=== PATIENT | female | born 1985 | race Caucasian/White ===

== ENCOUNTER 2018-07-09 19:46 | Inpatient (IN) ==
[2018-07-09] MEDS ORDERED: Sodium Chlor 0.9% Inj 500 ML IV.SIG PRN (21:00)
[2018-07-09] MEDS ORDERED: Citric Acid/Sodium Citrate Liq 30 ML UDC PO SCH (21:00)
[2018-07-09] MEDS ORDERED: Sod Chloride 0.9% Inj 1,000 ML IV.CONT PRN (21:00)
[2018-07-09] MEDS ORDERED: Oxytocin 30 Units/500ml Premix 30 UNITS/500 ML BAG IV.SIG ONE (21:00)
[2018-07-09] MEDS ORDERED: fentaNYL Citrate Inj 100 MCG/2 ML Ampul IV.PUSH PRN ×2 (21:00)
[2018-07-09 21:34] LABS: Bilirubin,Urine Negative (Negative); Clarity,Urine Clear (Clear); Color,Urine Colorless (Yellw/Straw); Glucose,Urine (UA) Negative (Negative); Leukocyte Esterase,Urine Negative (Negative); Mucus,Urine Few /lpf (Occasional); Nitrite,Urine Negative (Negative); Specific Gravity,Urine 1.002 (1.002-1.035); Squamous Epithelial Cell,Urine 1 /hpf (0-5)
[2018-07-09 21:36] LABS: Baso # (Auto) 0.1 th/mm3 (0.0-0.2); Baso % (Auto) 0.6 % (0.0-2.0); Eos # (Auto) 0.2 th/mm3 (0.0-0.4); Eos % (Auto) 1.5 % (0.0-4.0); Hemoglobin 9.6 gm/dL (11.6-15.3); Lymph # (Auto) 1.7 th/mm3 (1.0-4.8); Lymph % (Auto) 14.1 % (9.0-44.0); Mean Corpuscular HGB Conc 34.5 % (32.0-36.0); Mean Corpuscular Hemoglobin 31.8 pg (27.0-34.0); Mean Corpuscular Volume 92.2 fL (80.0-100.0); Mono # (Auto) 0.7 th/mm3 (0.0-0.9); Mono % (Auto) 5.9 % (0.0-8.0); Neut # (Auto) 9.3 th/mm3 (1.8-7.7); Neut % (Auto) 77.9 % (16.0-70.0); Platelet Count 312 th/mm3 (150-450); Red Blood Count 3.03 mil/mm3 (4.00-5.30); Red Cell Distribution Width 12.5 % (11.6-17.2)
[2018-07-09 21:38] LABS: Amphetamine Urine With Conf Neg (Neg); Benzodiazepine Urine With Conf Neg (Neg)
[2018-07-09 22:04] LABS: Albumin 2.5 g/dL (3.4-5.0); Anion Gap 12 meq/L (5-15); Aspartate Aminotransferase 16 U/L (15-37); Blood Urea Nitrogen 8 mg/dL (7-18); Calcium 8.5 mg/dL (8.5-10.1); Carbon Dioxide 21.5 meq/L (21.0-32.0); Chloride 107 meq/L (98-107); Glomerular Filtration Rate 77 mL/min (>89); Glucose,Random 100 mg/dL (74-106); Potassium 3.3 meq/L (3.5-5.1); Sodium 140 meq/L (136-145)
[2018-07-09 22:07] LABS: Alanine Aminotransferase 17 U/L (10-53); Alkaline Phosphatase 150 U/L (45-117); Total Protein 6.5 g/dL (6.4-8.2); Uric Acid 4.5 mg/dl (2.6-6.0)
--- NOTE | 2018-07-10 00:16 | P.HPOB ---
History of Present Illness Primary Care Physician: No Primary Care Physician Chief Complaint: PIH History of Present Illness: 32 yo with iup at 39w5d, admitted for iol for PIH. She was seen for JUANITA yesterday and noted to have elevated BP, proteinuria and 7 lb weight gain. Pt states that she has good movement, irreg ctx, no lof. She has not had headache, visual changes or ruq pain. Pt has anterior placenta with accessory lobe. 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 This includes certification that hospital inpatient services are reasonable and necessary and in the case of services not specified as inpatient-only under 42 CFR 419.22(n), that they are appropriately provided as inpatient services in accordance to with the 2-midnight benchmark under 43 CFR 412.3(e) Estimated Total Length of Stay (Days): 3 Plans for Post Hospital Care: Home Review of Systems All other systems reviewed negative except as stated in HPI PMFSH - Medical / Surgical Hx Neg / Unobtainable Medical Problems Denied: Yes Surgical History: No Previous Surgery - Social History I have reviewed the patient's Social History: Yes - Tobacco History Second Hand Smoke Exposure: No Tobacco Use In Past 30 Days: Yes Smoking Status: Former smoker Tobacco Type: Cigarettes - Alcohol History How Often Do You Have a Drink Containing Alcohol: Never - Substance Use History Substance History: No History of Abuse - Travel History History of Recent Travel: No Medications and Allergies Active Medications: Active Medications Citric Acid/Sodium Citrate (Sodium Citrate/Citric Acid Liq) 30 ml PO CLEAT FEEDER [facility] Stop: 07/13/18 20:59 Fentanyl Citrate (Fentanyl Inj) 50 mcg IV.PUSH Q1H PRN PRN Reason: Pain Scale 3 - 5 Fentanyl Citrate (Fentanyl Inj) 100 mcg IV.PUSH Q1H PRN PRN Reason: PAIN SCALE 6 TO 10 Lactated Ringer's (Lr 1000 Ml Inj) 1,000 mls @ 125 mls/hr IV.CONT .Q8H [facility] Last Admin: 07/09/18 21:06 Dose: 125 mls/hr Lactated Ringer's (Lr 1000 Ml Inj) 1,000 mls @ 3,000 mls/hr IV.SIG UNSCH PRN PRN Reason: compromise or epidural Sodium Chloride (Ns Inj) 500 mls @ 1,000 mls/hr IV.SIG UNSCH PRN PRN Reason: SEE LABEL COMMENTS Sodium Chloride (Ns Inj) 1,000 mls @ 100 mls/hr IV.CONT .Q10H PRN PRN Reason: SEE LABEL COMMENTS Lactated Ringer's (Lr 1000 Ml Inj) 1,000 mls @ 125 mls/hr IV.CONT .Q8H [facility] Lidocaine HCl (Xylocaine 1% Inj) 0.1 ml I-DERMAL PRN PRN PRN Reason: For IV start Stop: 07/12/18 20:59 Lidocaine HCl (Xylocaine 1% Inj) 10 ml INFILTRATN PRN PRN PRN Reason: For episiotomy repair Stop: 07/11/18 20:59 Mineral Oil (Muri-Lube Oil) 10 ml TOPICAL PRN PRN PRN Reason: PRN perineal massage Misoprostol (Cytotec) 25 mcg VAGINAL Q4H [facility] Stop: 07/10/18 01:01 Last Admin: 07/09/18 21:20 Dose: 25 mcg Allergies Allergy/AdvReac Type Severity Reaction Status Date / Time cephalexin Allergy Severe Itching Verified 07/09/18 20:19 amoxicillin Allergy Intermediate Itching Verified 07/09/18 20:19 Home Medications Medication Instructions Recorded Confirmed Type Vitamin 1 tab DAILY 07/09/18 07/09/18 History Exam Vital signs: Vital Signs 07/09/18 20:32 07/09/18 23:48 Temperature 98.8 F 98.3 F Pulse Rate 85 89 Respiratory Rate 16 17 Blood Pressure 125/86 117/77 Intake & Output 07/09/18 07/09/18 07/10/18 06:59 18:59 06:59 Weight 84.822 kg - Constitutional no acute distress - Routine HEENT Exam Head: Present: normocephalic Eye: Present: EOMI - Routine Neck Exam Present: full ROM - Routine Respiratory Exam Absent: accessory muscle use - Routine Cardiovascular Exam Present: RRR - Routine Abdominal Exam Present: soft. Absent: tenderness, distended, rebound - Routine Exam Comments: 3, soft anterior - Routine Extremities Exam Present: edema (1+). Absent: cyanosis, clubbing - Routine Neurological Exam Present: alert, oriented X3 Results - Labs CBC & Chem 7: 07/09/18 20:40 07/09/18 20:40 Labs: Laboratory Results - last 24 hr 07/09/18 07/09/18 07/09/18 20:14 20:14 20:14 WBC RBC Hgb Hct MCV MCH MCHC RDW Plt Count MPV Neut % (Auto) Lymph % (Auto) [place] % (Auto) Eos % (Auto) Baso % (Auto) Neut # (Auto) Lymph # (Auto) [place] # (Auto) Eos # (Auto) Baso # (Auto) WBC Differential Differential Comment Sodium Potassium Chloride Carbon Dioxide Anion Gap BUN Creatinine Estimated GFR Random Glucose Uric Acid Calcium Total Bilirubin AST ALT Alkaline Phosphatase Total Protein Albumin Urine Color Colorless Urine Clarity Clear Urine pH 7.0 Ur Specific [place] 1.002 Urine Protein Negative Urine Glucose (UA) Negative Urine Ketones Negative Urine Occult Blood Negative Urine Nitrate Negative Urine Bilirubin Negative Urine Urobilinogen Less than 2 Ur Leukocyte Esterase Negative Urine WBC Less than 1 Ur Squamous Epith Cells 1 Urine Mucus Few H Micro UA Comment Culture not ind Ur Microscopic Review Not Reportable Urine Culture Comments Culture not ind Ur Random Creatinine Less than 13 L U Random Total Protein Less than 5.0 Protein/Creatinin Ratio 0.00 Urine Opiates Screen Neg Ur Barbiturates Screen Neg Ur Amphetamine Screen Neg U Benzodiazepines Scrn Neg Urine Cocaine Screen Neg U Cannabinoids Screen Neg Blood Type 07/09/18 07/09/18 07/09/18 20:40 20:40 20:49 WBC 12.0 H RBC 3.03 L Hgb 9.6 L Hct 28.0 L MCV 92.2 MCH 31.8 MCHC 34.5 RDW 12.5 Plt Count 312 MPV 8.0 Neut % (Auto) 77.9 H Lymph % (Auto) 14.1 [place] % (Auto) 5.9 Eos % (Auto) 1.5 Baso % (Auto) 0.6 Neut # (Auto) 9.3 H Lymph # (Auto) 1.7 [place] # (Auto) 0.7 Eos # (Auto) 0.2 Baso # (Auto) 0.1 WBC Differential . Differential Comment Auto diff final Sodium 140 Potassium 3.3 L Chloride 107 Carbon Dioxide 21.5 Anion Gap 12 BUN 8 Creatinine 0.85 Estimated GFR 77 L Random Glucose 100 Uric Acid 4.5 Calcium 8.5 Total Bilirubin 0.2 AST 16 ALT 17 Alkaline Phosphatase 150 H Total Protein 6.5 Albumin 2.5 L Urine Color Urine Clarity Urine pH Ur Specific [place] Urine Protein Urine Glucose (UA) Urine Ketones Urine Occult Blood Urine Nitrate Urine Bilirubin Urine Urobilinogen Ur Leukocyte Esterase Urine WBC Ur Squamous Epith Cells Urine Mucus Micro UA Comment Ur Microscopic Review Urine Culture Comments Ur Random Creatinine U Random Total Protein Protein/Creatinin Ratio Urine Opiates Screen Ur Barbiturates Screen Ur Amphetamine Screen U Benzodiazepines Scrn Urine Cocaine Screen U Cannabinoids Screen Blood Type A Positive Group B Strep: Negative Caprini VTE Risk Assessment Caprini VTE Risk Assessment: No/Low Risk (score <= 1) Caprini Risk Assessment Model: Point Value = 1 Point Value = 2 Point Value = 3 Point Value = 5 Age 41-60 Minor surgery BMI > 25 kg/m2 Swollen legs Varicose veins or History of unexplained or recurrent spontaneous Oral contraceptives or hormone replacement Sepsis (< 1 month) Serious lung disease, including pneumonia (< 1 month) Abnormal pulmonary function Acute myocardial infarction Congestive heart failure (< 1 month) History of inflammatory bowel disease Medical patient at bed rest Age 61-74 Arthroscopic surgery Major open surgery (> 45 min) Laparoscopic surgery (> 45 min) Malignancy Confined to bed (> 72 hours) Immobilizing plaster cast Central venous access Age >= 75 History of VTE Family history of VTE Factor V Leiden Prothrombin [id number] Lupus anticoagulant Anticardiolipin antibodies Elevated serum homocysteine Heparin-induced thrombocytopenia Other congenital or acquired thrombophilia Stroke (< 1 month) Elective arthroplasty Hip, pelvis, or leg fracture Acute spinal cord injury (< 1 month) Prophylaxis Regimen: Total Risk Factor Score Risk Level Prophylaxis Regimen 0-1 Low Early ambulation 2 Moderate Order ONE of the following: *Sequential Compression Device (SCD) *Heparin 5000 units SQ BID 3-4 Higher Order ONE of the following medications: *Heparin 5000 units SQ TID *Enoxaparin/Lovenox 40 mg SQ daily (WT < 150 kg, CrCl > 30 mL/min) *Enoxaparin/Lovenox 30 mg SQ daily (WT < 150 kg, CrCl > 10-29 mL/min) *Enoxaparin/Lovenox 30 mg SQ BID (WT < 150 kg, CrCl > 30 mL/min) AND/OR *Sequential Compression Device (SCD) 5 or more Highest Order ONE of the following medications: *Heparin 5000 units SQ TID (Preferred with Epidurals) *Enoxaparin/Lovenox 40 mg SQ daily (WT < 150 kg, CrCl > 30 mL/min) *Enoxaparin/Lovenox 30 mg SQ daily (WT < 150 kg, CrCl > 10-29 mL/min) *Enoxaparin/Lovenox 30 mg SQ BID (WT < 150 kg, CrCl > 30 mL/min) AND *Sequential Compression Device (SCD) Assessment and Plan - Diagnosis (1) induced hypertension Code(s): O13.9 - Gestational [-induced] hypertension without significant proteinuria, unspecified trimester Status: Acute (2) Labor and delivery indication for care or intervention Code(s): O75.9 - Complication of labor and delivery, unspecified Status: Acute - Plan 32 yo with iup at 39w5d by 11 wk u/s c/w lmp admitted for PIH 1) IOL- aware that induction can be prolonged. I will try to special pt for delivery. 2) PIH- bp normal in hospital, normal labs 3) Tob use - quit 4) Posterior placenta with an accessory lobe 5) Fetus male, AGA, Cat I tracing 6) GBS neg Discharge Planning: home ppd 2-3
[2018-07-10] MEDS ORDERED: Oxytocin 30 Units/500ml Premix 30 UNITS/500 ML BAG IV.SIG PRN (04:29)
[2018-07-10] MEDS ORDERED: fentaNYL 2MCG-Bupiv 0.125% Epi 150 ML EPIDURAL ONE (08:05)
[2018-07-10] MEDS ORDERED: Lidocaaine 1.5%/Epinephrine 1:200,000 PF Inj 5 ML Amp ONE (08:15)
[2018-07-10] MEDS ORDERED: Lidocaine PF 1% Inj 5 ML Vial ONE (08:16)
--- NOTE | 2018-07-10 08:41 | P.OBANTE ---
Subjective Interval History: comfortable on pitocin Objective Vital Signs and I&O: Vital Signs 07/09/18 20:32 07/09/18 23:48 07/10/18 04:30 Temperature 98.8 F 98.3 F 98.2 F Pulse Rate 85 89 Respiratory Rate 16 17 18 Blood Pressure 125/86 117/77 07/10/18 04:31 07/10/18 06:00 07/10/18 07:00 Temperature Pulse Rate 76 70 Respiratory Rate 16 17 Blood Pressure 136/94 H 137/94 H 07/10/18 07:15 07/10/18 07:35 07/10/18 07:40 Temperature 98.1 F Pulse Rate 74 Respiratory Rate 18 17 Blood Pressure 130/101 H 07/10/18 08:14 07/10/18 08:26 07/10/18 08:30 Temperature Pulse Rate 65 81 85 Respiratory Rate 17 19 Blood Pressure 143/95 H 143/94 H 134/89 07/10/18 08:35 Temperature Pulse Rate 83 Respiratory Rate 17 Blood Pressure 136/87 Intake & Output 07/09/18 07/10/18 07/10/18 18:59 06:59 18:59 Intake Total 1000 / 1000 Balance 1000 / 1000 Weight 84.822 kg Intake: IV 1000 / 1000 LR 1000 mL Inj 1,000 ML @ 125 1000 / 1000 mls/hr IV.CONT .Q8H [facility] Rx#: [id number] Lab and Micro Results: Laboratory Results - last 24 hr 07/09/18 07/09/18 07/09/18 20:14 20:14 20:14 WBC RBC Hgb Hct MCV MCH MCHC RDW Plt Count MPV Neut % (Auto) Lymph % (Auto) [place] % (Auto) Eos % (Auto) Baso % (Auto) Neut # (Auto) Lymph # (Auto) [place] # (Auto) Eos # (Auto) Baso # (Auto) WBC Differential Differential Comment Sodium Potassium Chloride Carbon Dioxide Anion Gap BUN Creatinine Estimated GFR Random Glucose Uric Acid Calcium Total Bilirubin AST ALT Alkaline Phosphatase Total Protein Albumin Urine Color Colorless Urine Clarity Clear Urine pH 7.0 Ur Specific [place] 1.002 Urine Protein Negative Urine Glucose (UA) Negative Urine Ketones Negative Urine Occult Blood Negative Urine Nitrate Negative Urine Bilirubin Negative Urine Urobilinogen Less than 2 Ur Leukocyte Esterase Negative Urine WBC Less than 1 Ur Squamous Epith Cells 1 Urine Mucus Few H Micro UA Comment Culture not ind Ur Microscopic Review Not Reportable Urine Culture Comments Culture not ind Ur Random Creatinine Less than 13 L U Random Total Protein Less than 5.0 Protein/Creatinin Ratio 0.00 Urine Opiates Screen Neg Ur Barbiturates Screen Neg Ur Amphetamine Screen Neg U Benzodiazepines Scrn Neg Urine Cocaine Screen Neg U Cannabinoids Screen Neg Blood Type 07/09/18 07/09/18 07/09/18 20:40 20:40 20:49 WBC 12.0 H RBC 3.03 L Hgb 9.6 L Hct 28.0 L MCV 92.2 MCH 31.8 MCHC 34.5 RDW 12.5 Plt Count 312 MPV 8.0 Neut % (Auto) 77.9 H Lymph % (Auto) 14.1 [place] % (Auto) 5.9 Eos % (Auto) 1.5 Baso % (Auto) 0.6 Neut # (Auto) 9.3 H Lymph # (Auto) 1.7 [place] # (Auto) 0.7 Eos # (Auto) 0.2 Baso # (Auto) 0.1 WBC Differential . Differential Comment Auto diff final Sodium 140 Potassium 3.3 L Chloride 107 Carbon Dioxide 21.5 Anion Gap 12 BUN 8 Creatinine 0.85 Estimated GFR 77 L Random Glucose 100 Uric Acid 4.5 Calcium 8.5 Total Bilirubin 0.2 AST 16 ALT 17 Alkaline Phosphatase 150 H Total Protein 6.5 Albumin 2.5 L Urine Color Urine Clarity Urine pH Ur Specific [place] Urine Protein Urine Glucose (UA) Urine Ketones Urine Occult Blood Urine Nitrate Urine Bilirubin Urine Urobilinogen Ur Leukocyte Esterase Urine WBC Ur Squamous Epith Cells Urine Mucus Micro UA Comment Ur Microscopic Review Urine Culture Comments Ur Random Creatinine U Random Total Protein Protein/Creatinin Ratio Urine Opiates Screen Ur Barbiturates Screen Ur Amphetamine Screen U Benzodiazepines Scrn Urine Cocaine Screen U Cannabinoids Screen Blood Type A Positive Physical Exam: GENERAL: Well-nourished, well-developed patient. CARDIOVASCULAR: Regular rate and rhythm without murmurs, gallops, or rubs. RESPIRATORY: Breath sounds equal bilaterally. No accessory muscle use. ABDOMEN/GI: Abdomen soft, non-tender. Fundus: [-] GENITOURINARY: External Genitalia: intact and normal in appearance Cervix: [-] 50% Dilatation: [-] 2 Station: [-]-1 Presentation: [-] Membranes: [-] Uterine Contractions: [-] some FHT's: Category: [-] 1 Baseline: [-] Reactive: [-] R Variability: [-] Decels: [-] EXTREMITIES: No cyanosis or edema, non-tender, without signs of DVT. Assessment and Plan - Diagnosis (1) induced hypertension Code(s): O13.9 - Gestational [-induced] hypertension without significant proteinuria, unspecified trimester Status: Acute (2) Labor and delivery indication for care or intervention Code(s): O75.9 - Complication of labor and delivery, unspecified Status: Acute - Plan 32 yo with iup at 39w5d by 11 wk u/s c/w lmp admitted for PIH 1) IOL- aware that induction can be prolonged. . 2) PIH- bp normal in hospital, normal labs 3) Tob use - quit 4) Posterior placenta with an accessory lobe 5) Fetus male, AGA, Cat I tracing 6) GBS neg 7) AROM clear, epidural prn, f/u labor progress Discharge Planning: home ppd 2-3 - Attending Attestation pt seen by me
[2018-07-10] MEDS ORDERED: fentaNYL 2MCG-Bupiv 0.125% Epi 150 ML EPIDURAL PRN (09:13)
[2018-07-10] MEDS ORDERED: fentaNYL Citrate Inj 100 MCG/2 ML Ampul EPIDURAL ONE (09:13)
[2018-07-10] MEDS ORDERED: Lidocaine 1% Inj 50 ML Vial ONE (13:23)
--- NOTE | 2018-07-10 15:19 | P.OBDELI ---
Weeks Gestation: 39 Patient Started Active Labor: Yes Medical Induction of Labor: Yes (PIH) Medical Induction Start Date: 07/09/18 Artificial Rupture of Membrane: Yes (clear) Artificial ROM Date: 07/10/18 Anesthesia: Epidural Episiotomy: none Vaginal Delivery: Normal Presentation: Occiput anterior Nuchal Cord: None Delayed Cord Clamping (45 sec): Yes Placenta: Spontaneous delivery, Intact (accesory lobe noted), Uterus explored + Laceration: 1 deg (periurethral) Repair: Chromic interrupted (3-0 chromic figure of 8) Estimated blood loss (mL): 400 Infant: Male Male A Delivery Date: 07/10/18 Delivery Time: 14:55 score (1 min): 8 score (5 min): 8
[2018-07-10] MEDS ORDERED: Bisacodyl 10 MG Supp RECTAL PRN (15:20)
[2018-07-10] MEDS ORDERED: Benzocaine 20% Top Spray 60 ML Can TOPICAL PRN (15:20)
[2018-07-10] MEDS ORDERED: Naloxone Inj 0.4 MG/ML Vial IV.PUSH PRN (15:20)
[2018-07-10] MEDS ORDERED: Witch Hazel 50%/Glyderin 12.5% 40 Pad Jar RECTAL PRN (15:20)
[2018-07-10] MEDS ORDERED: Oxytocin 30 Units/500ml Premix 30 UNITS/500 ML BAG IV.CONT PRN (15:20)
[2018-07-10] MEDS ORDERED: Acetaminophen 325 MG Tablet PO PRN (15:20)
[2018-07-10] MEDS ORDERED: Zolpidem Tartrate 5 MG Tablet PO PRN (15:20)
[2018-07-10] MEDS ORDERED: Oxytocin 30 Units/500ml Premix 30 UNITS/500 ML BAG ONE (15:27)
[2018-07-10] MEDS ORDERED: Measles/Mumps/Rubella Vaccine Inj 0.5 ML Vial SQ ONE (16:00)
[2018-07-10] MEDS ORDERED: Diphtheria/Tetanus/Pertussis Vaccine Inj 0.5 ML Syringe IM ONE (16:00)
[2018-07-10 17:54] VITALS: O2SAT 98
[2018-07-11] MEDS: Senna/Docusate Sodium 8.6/50 MG Tablet PO SCH ×2 (00:38→08:52)
[2018-07-11 08:07] VITALS: BP 115/85; PULSE 89; RESP 20; TEMP 98.2
[2018-07-11] MEDS ORDERED: Ferrous Sulfate 325 MG Tablet PO SCH (09:00)
--- NOTE | 2018-07-11 10:24 | P.PNOB ---
Subjective Post day: 1 Interval history: mom has 4 year old and would like to go home today baby needs circumcision nursing no excessive bleeding Objective Vital Signs/I&O: Vital Signs 07/10/18 10:25 07/10/18 10:30 07/10/18 10:35 Temperature 98.3 F Pulse Rate 77 89 80 Respiratory Rate Blood Pressure 141/92 H 137/95 H Pulse Oximetry 07/10/18 10:45 07/10/18 10:50 07/10/18 10:55 Temperature Pulse Rate 86 84 Respiratory Rate 18 Blood Pressure Pulse Oximetry 07/10/18 11:08 07/10/18 11:25 07/10/18 11:43 Temperature Pulse Rate 80 78 92 H Respiratory Rate 17 18 Blood Pressure 140/95 H 137/93 H 142/93 H Pulse Oximetry 07/10/18 11:45 07/10/18 11:55 07/10/18 12:00 Temperature Pulse Rate 82 83 82 Respiratory Rate 17 Blood Pressure 128/91 H 110/74 Pulse Oximetry 07/10/18 12:05 07/10/18 12:10 07/10/18 12:15 Temperature Pulse Rate 85 86 89 Respiratory Rate 18 Blood Pressure 131/87 Pulse Oximetry 07/10/18 12:24 07/10/18 12:25 07/10/18 12:30 Temperature 97.9 F Pulse Rate 90 80 88 Respiratory Rate 17 Blood Pressure 130/83 Pulse Oximetry 07/10/18 12:35 07/10/18 12:40 07/10/18 12:45 Temperature Pulse Rate 85 83 83 Respiratory Rate Blood Pressure 128/84 Pulse Oximetry 07/10/18 12:50 07/10/18 12:55 07/10/18 12:57 Temperature Pulse Rate 82 82 Respiratory Rate 18 Blood Pressure Pulse Oximetry 07/10/18 13:05 07/10/18 13:10 07/10/18 13:15 Temperature Pulse Rate 81 83 96 H Respiratory Rate Blood Pressure 130/90 120/86 Pulse Oximetry 07/10/18 13:20 07/10/18 13:25 07/10/18 13:35 Temperature Pulse Rate 101 H 103 H 103 H Respiratory Rate 17 Blood Pressure 138/99 H Pulse Oximetry 07/10/18 13:40 07/10/18 13:45 07/10/18 14:20 Temperature Pulse Rate 94 H 92 H 92 H Respiratory Rate 19 Blood Pressure 140/93 H 125/86 Pulse Oximetry 07/10/18 15:15 07/10/18 15:25 07/10/18 15:55 Temperature 98.2 F Pulse Rate 95 H Respiratory Rate 17 18 17 Blood Pressure Pulse Oximetry 07/10/18 16:01 07/10/18 16:04 07/10/18 16:15 Temperature Pulse Rate 103 H 82 Respiratory Rate 17 Blood Pressure 125/103 H 135/96 H Pulse Oximetry 07/10/18 16:18 07/10/18 16:23 07/10/18 16:30 Temperature Pulse Rate 81 76 Respiratory Rate 18 Blood Pressure 126/85 129/95 H Pulse Oximetry 07/10/18 16:34 07/10/18 17:53 07/10/18 20:01 Temperature 98.6 F 99.1 F Pulse Rate 71 83 86 Respiratory Rate 18 18 Blood Pressure 140/90 144/85 H 138/85 Pulse Oximetry 98 07/11/18 08:00 Temperature 98.2 F Pulse Rate 89 Respiratory Rate 20 Blood Pressure 115/85 Pulse Oximetry Result Diagrams: 07/09/18 20:40 07/09/18 20:40 Objective Remarks: GENERAL: Well-nourished, well-developed patient. CARDIOVASCULAR: Regular rate and rhythm without murmurs, gallops, or rubs. RESPIRATORY: Breath sounds equal bilaterally. No accessory muscle use. ABDOMEN/GI: Abdomen soft, non-tender. Fundus: Firm, non-tender at umbilicus. GENITOURINARY: Light to moderate bleeding. EXTREMITIES: No cyanosis or edema, non-tender, without signs of DVT. Medications and IVs: Active Medications Acetaminophen (Tylenol) 650 mg PO Q4H PRN PRN Reason: PAIN SCALE 1 TO 2 Al Hydroxide/Mg Hydroxide (Milk Of Magnesia Liq) 30 ml PO Q12H PRN PRN Reason: Mild Constipation Benzocaine (Americaine 20% [place]) 1 spray TOPICAL Q4H PRN PRN Reason: For Perineum Discomfort Bisacodyl (Dulcolax Supp) 10 mg RECTAL DAILY PRN PRN Reason: SEVERE CONSITIPATION Ferrous Sulfate (Ferosul) 325 mg PO DAILY ELEN Last Admin: 07/11/18 08:52 Dose: 325 mg Ibuprofen (Motrin) 800 mg PO Q8H PRN PRN Reason: For Cramping Last Admin: 07/11/18 06:15 Dose: 800 mg Lactulose (Lactulose Liq) 30 ml PO DAILY PRN PRN Reason: SEVERE CONSITIPATION Naloxone HCl (Narcan Inj) 0.1 mg IV.PUSH Q2M PRN PRN Reason: for opiate reversal Ondansetron HCl (Zofran Odt) 4 mg PO Q6H PRN PRN Reason: NAUSEA OR VOMITING Senna/Docusate Sodium ([place]-Colace) 1 tab PO BID [facility] Last Admin: 07/11/18 08:52 Dose: 1 tab Sennosides (Senokot) 17.2 mg PO Q12H PRN PRN Reason: Moderate Constipation Sodium Chloride (Ns Flush) 2 ml IV.FLUSH BID [facility] Last Admin: 07/11/18 08:52 Dose: Not Given Sodium Chloride (Ns Flush) 2 ml IV.FLUSH UNSCH PRN PRN Reason: FLUSH AFTER USING IV ACCESS Witch Romy/Glycerin (Tucks Pads) 1 applicatio RECTAL QID PRN PRN Reason: HEMORRHOIDS Zolpidem Tartrate (Ambien) 5 mg PO HS PRN PRN Reason: SLEEP Assessment and Plan - Diagnosis (1) induced hypertension Code(s): O13.9 - Gestational [-induced] hypertension without significant proteinuria, unspecified trimester Status: Acute (2) Labor and delivery indication for care or intervention Code(s): O75.9 - Complication of labor and delivery, unspecified Status: Acute - Plan 32 yo with iup at 39w5d by 11 wk u/s c/w lmp admitted for PIH 1) IOL- aware that induction can be prolonged. . 2) PIH- bp normal in hospital, normal labs 3) Tob use - quit 4) Posterior placenta with an accessory lobe 5) Fetus male, AGA, Cat I tracing 6) GBS neg 7) AROM clear, epidural prn, f/u labor progress PPD1 07/11/18 10:00 doing well discharge in place RTO 6 weeks counseled in detail on circumcision Discharge Planning: home ppd 2-3
== END 2018-07-11 18:15 | disposition home or self-care (01) ==
LOC: H2E 19:46 → H1EA 07-10 17:09
PROVIDERS: ADMIT Obstetrics & Gynecology; ATTEND Obstetrics & Gynecology